=== PATIENT | female | born 1950 ===

== ENCOUNTER 2017-08-17 08:52 | Emergency (ER) | payer MEDICARE, OTHER ==
[2017-08-17 09:13] VITALS: BP 119/74
--- NOTE | 2017-08-17 09:29 | UC ---
Throat Pain/Nasal Cesar HPI - HPI Summary HPI Summary: Patient to urgent care chief complaint sore throat began last night patient has been providing care for her grandchild who has strep - History of Current Complaint Chief Complaint: UCGeneralIllness Stated Complaint: SORE THROAT Time Seen by Provider: 08/17/17 08:55 Hx Obtained From: Patient Hx Last Menstrual Period: na ?: No Onset/Duration: Sudden Onset Severity: Moderate Pain Intensity: 7 Pain Scale Used: 0-10 Numeric Cough: None Associated Signs & Symptoms: Positive: Negative - Allergies/Home Medications Allergies/Adverse Reactions: Allergies Allergy/AdvReac Type Severity Reaction Status Date / Time No Known Allergies Allergy Verified 08/17/17 09:13 Home Medications: Home Medications Alendronate Sodium [Fosamax-] 70 mg PO WEEKLY 08/17/17 [History Confirmed ] Brimonidine Tartrate 0.2 % OP DAILY WITH MEAL 08/17/17 [History Confirmed ] Dorzolamide HCl 10 ml OP DAILY WITH MEAL 08/17/17 [History Confirmed 08/17/17] Latanoprost [Xalatan] 2.5 ml OP DAILY WITH MEAL 08/17/17 [History Confirmed ] Timolol Maleate 0.5 % OP DAILY 08/17/17 [History Confirmed 08/17/17] dilTIAZem HCl [Dilt-Xr] 120 mg PO DAILY 08/17/17 [History Confirmed 08/17/17] PMH/Surg Hx/FS Hx/Imm Hx Previously Healthy: No - glaucoma Cardiovascular History: Cardiac Disease - Bigeminy - Surgical History Surgical History: None Surgery Procedure, Year, and Place: denies - Family History Known Family History: Positive: None - Social History Occupation: Retired Lives: With Family Alcohol Use: Rare Substance Use Type: None Smoking Status (MU): Never Smoked Tobacco Review of Systems Constitutional: Negative Skin: Negative Eyes: Negative ENT: Sore Throat Respiratory: Negative Cardiovascular: Negative Gastrointestinal: Negative Genitourinary: Negative Motor: Negative Neurovascular: Negative Musculoskeletal: Negative Neurological: Negative Psychological: Negative Is Patient Immunocompromised?: No All Other Systems Reviewed And Are Negative: Yes Physical Exam Triage Information Reviewed: Yes Appearance: Well-Appearing, No Pain Distress, Well-Nourished Vital Signs: Initial Vital Signs Temp 98.3 F 08/17/17 09:07 Pulse 61 08/17/17 09:07 Resp 16 08/17/17 09:07 BP 119/74 08/17/17 09:07 Pulse Ox 99 08/17/17 09:07 Vital Signs Reviewed: Yes Eye Exam: Normal Eyes: Positive: Conjunctiva Clear ENT Exam: Normal ENT: Positive: Normal ENT inspection, Hearing grossly normal, Pharyngeal erythema, TMs normal, Uvula midline. Negative: Nasal drainage, Trismus, Muffled voice, Hoarse voice, Dental tenderness, Sinus tenderness Dental Exam: Normal Neck exam: Normal Neck: Positive: Supple, Nontender Respiratory Exam: Normal Respiratory: Positive: Chest non-tender, No respiratory distress, No accessory muscle use Cardiovascular Exam: Normal Cardiovascular: Positive: RRR, No Murmur, Pulses Normal, Brisk Capillary Refill Musculoskeletal Exam: Normal Musculoskeletal: Positive: Strength Intact, ROM Intact, No Edema Neurological Exam: Normal Neurological: Positive: Alert, Muscle Tone Normal Psychological Exam: Normal Skin Exam: Normal Diagnostics - Laboratory Diagnostic Studies Completed/Ordered: Rapid strep negative Throat Pain/Nasal Course/Dx - Course Assessment/Plan: Treatment with Tylenol, ibuprofen, Mucinex D. Follow with primary care doctor or return to urgent care as needed - Differential Dx/Diagnosis Provider Diagnoses: Viral pharyngitis,URI Discharge - Sign-Out/Discharge Documenting (check all that apply): Discharge - Discharge Plan Condition: Stable Disposition: HOME Patient Education Materials: Viral Syndrome (ED), Decongestant/Expectorant (By mouth) Referrals: No Primary Care Phys,NOPCP [Primary Care Provider] - - Billing Disposition and Condition Condition: STABLE Disposition: HOME
== END 2017-08-17 09:39 | disposition home or self-care (01) ==
LOC: UCEAST 08:52
DX: J02.8 Acute pharyngitis due to other specified organisms (principal); J06.9 Acute upper respiratory infection, unspecified; H40.9 Unspecified glaucoma; R00.8 Other abnormalities of heart beat
CPT/HCPCS: 87651; 99202; G0463